=== PATIENT | female | born 1975 | race Caucasian/White ===

== ENCOUNTER → 2019-09-23 16:28 | Outpatient (BNVA) | payer OTHER, SELFPAY | PROVIDERS: Family Provider Family Medicine; PCP Family Medicine; Visit Provider Nurse Practitioner Family | DX: J02.9 Acute pharyngitis, unspecified (principal) | CPT/HCPCS: 87880 ==

== ENCOUNTER → 2019-10-10 15:39 | Outpatient (BNVA) | payer OTHER, SELFPAY | PROVIDERS: Family Provider Family Medicine; PCP Family Medicine; Visit Provider Anesthesiology | DX: M54.41 Lumbago with sciatica, right side (principal); M54.42 Lumbago with sciatica, left side; Z79.891 Long term (current) use of opiate analgesic | CPT/HCPCS: 99214 ==

== ENCOUNTER → 2019-11-13 12:39 | Outpatient (BNVA) | payer OTHER, SELFPAY | PROVIDERS: Family Provider Family Medicine; PCP Family Medicine; Visit Provider Podiatrist Foot & Ankle Surgery | DX: M79.671 Pain in right foot (principal); M77.31 Calcaneal spur, right foot | CPT/HCPCS: 73630 ==

== ENCOUNTER 2020-01-24 12:00 | Outpatient (CLI) | payer OTHER, SELFPAY | END 2020-01-24 12:01 | disposition home or self-care (01) | LOC: SLEEP 01-25 10:44 | PROVIDERS: Family Provider Family Medicine; PCP Family Medicine; Visit Provider Family Medicine | DX: G47.10 Hypersomnia, unspecified (principal) | CPT/HCPCS: G0399 ==

== ENCOUNTER → 2020-01-31 13:44 | Outpatient (BNVA) | payer OTHER, SELFPAY | PROVIDERS: Family Provider Family Medicine; PCP Family Medicine; Visit Provider Nurse Practitioner | DX: M54.41 Lumbago with sciatica, right side (principal); M54.42 Lumbago with sciatica, left side; Z79.891 Long term (current) use of opiate analgesic | CPT/HCPCS: 99213 ==

== ENCOUNTER → 2020-02-08 10:35 | Outpatient (BNVA) | payer OTHER, SELFPAY | PROVIDERS: Family Provider Family Medicine; PCP Family Medicine; Visit Provider Anesthesiology Pain Medicine | DX: M54.41 Lumbago with sciatica, right side (principal); M54.42 Lumbago with sciatica, left side | CPT/HCPCS: 62323; J1040; J2001; J3490 ==

== ENCOUNTER 2020-02-11 13:06 | Outpatient (CLI) | payer OTHER, SELFPAY ==
--- NOTE | 2020-02-11 13:13 | MM_ITS ---
WS: [id number] BILATERAL DIGITAL SCREENING MAMMOGRAPHY WITH CAD CLINICAL INFORMATION: SCREENING HISTORY: Breast soreness COMPARISON: March 02, 2019 TECHNIQUE: Bilateral CC and MLO views. FINDINGS: Scattered fibroglandular densities bilaterally. No suspicious focal mass, asymmetry, calcifications, or architectural distortion. No evidence of malignancy. MM/[id number] IMPRESSION: BI-RADS: 1-Negative FOLLOW UP: 1 Year Follow-up Recommend return to annual screening mammography.
== END 2020-02-11 13:07 | disposition home or self-care (01) ==
LOC: RADSHAW 13:10
PROVIDERS: PCP Family Medicine; Visit Provider Family Medicine
DX: Z12.31 Encounter for screening mammogram for malignant neoplasm of breast (principal)
CPT/HCPCS: 77067

== ENCOUNTER 2020-02-11 13:34 | Outpatient (CLI) | payer OTHER, SELFPAY | END 2020-02-11 13:35 | disposition home or self-care (01) | LOC: SPT 13:36 | PROVIDERS: PCP Family Medicine; Visit Provider Podiatrist Foot & Ankle Surgery | DX: Z46.89 Encounter for fitting and adjustment of other specified devices (principal); M76.72 Peroneal tendinitis, left leg | CPT/HCPCS: 97760; L1902 ==

== ENCOUNTER → 2020-03-26 10:33 | Outpatient (BNVA) | payer OTHER, SELFPAY | PROVIDERS: PCP Family Medicine; Visit Provider Nurse Practitioner | DX: M54.42 Lumbago with sciatica, left side (principal); M54.41 Lumbago with sciatica, right side; M79.7 Fibromyalgia; Z79.891 Long term (current) use of opiate analgesic | CPT/HCPCS: 99214 ==

== ENCOUNTER → 2020-05-21 09:51 | Outpatient (BNVA) | payer SELFPAY | PROVIDERS: PCP Family Medicine; Visit Provider Anesthesiology | DX: M54.41 Lumbago with sciatica, right side (principal); Z79.891 Long term (current) use of opiate analgesic | CPT/HCPCS: 99213; 99214 ==

== ENCOUNTER → 2020-06-20 13:15 | Outpatient (BNVA) | payer OTHER, SELFPAY | PROVIDERS: PCP Family Medicine | DX: Z11.59 Encounter for screening for other viral diseases (principal) | CPT/HCPCS: 87635 ==

== ENCOUNTER → 2020-07-02 10:45 | Outpatient (BNVA) | payer OTHER, SELFPAY | PROVIDERS: PCP Family Medicine; Visit Provider Nurse Practitioner Family | DX: Z20.828 Contact with and (suspected) exposure to other viral communicable diseases (principal) | CPT/HCPCS: 87635 ==

== ENCOUNTER → 2020-07-17 08:56 | Outpatient (BNVA) | payer OTHER, SELFPAY | PROVIDERS: PCP Family Medicine; Visit Provider Anesthesiology | DX: M54.42 Lumbago with sciatica, left side (principal); M54.41 Lumbago with sciatica, right side; Z79.891 Long term (current) use of opiate analgesic | CPT/HCPCS: 99213; 99214 ==

== ENCOUNTER → 2020-09-16 14:08 | Outpatient (BNVA) | payer OTHER, SELFPAY | PROVIDERS: PCP Family Medicine; Visit Provider Anesthesiology | DX: M54.41 Lumbago with sciatica, right side (principal); M54.42 Lumbago with sciatica, left side; Z79.891 Long term (current) use of opiate analgesic | CPT/HCPCS: 99213 ==

== ENCOUNTER → 2020-11-13 14:17 | Outpatient (BNVA) | payer OTHER, SELFPAY | PROVIDERS: PCP Family Medicine; Visit Provider Nurse Practitioner | DX: M54.41 Lumbago with sciatica, right side (principal); M54.42 Lumbago with sciatica, left side; Z79.891 Long term (current) use of opiate analgesic | CPT/HCPCS: 99213 ==

== ENCOUNTER → 2021-01-14 08:48 | Outpatient (BNVA) | payer BC, SELFPAY | PROVIDERS: PCP Family Medicine; Visit Provider Nurse Practitioner | DX: M54.42 Lumbago with sciatica, left side (principal); M54.41 Lumbago with sciatica, right side; M79.7 Fibromyalgia; Z79.891 Long term (current) use of opiate analgesic | CPT/HCPCS: 99213 ==

== ENCOUNTER → 2021-02-09 10:31 | Outpatient (BNVA) | payer BC, SELFPAY | PROVIDERS: PCP Family Medicine; Visit Provider Podiatrist Foot & Ankle Surgery | DX: M25.579 Pain in unspecified ankle and joints of unspecified foot (principal) | CPT/HCPCS: 73610 ==

== ENCOUNTER → 2021-03-17 08:38 | Outpatient (BNVA) | payer BC, SELFPAY | PROVIDERS: PCP Family Medicine; Visit Provider Nurse Practitioner | DX: G89.29 Other chronic pain (principal); M54.41 Lumbago with sciatica, right side; M54.42 Lumbago with sciatica, left side; M54.2 Cervicalgia; Z79.891 Long term (current) use of opiate analgesic | CPT/HCPCS: 99213 ==

== ENCOUNTER → 2021-05-27 09:46 | Outpatient (BNVA) | payer BC, SELFPAY | PROVIDERS: PCP Family Medicine; Visit Provider Anesthesiology | DX: G89.29 Other chronic pain (principal); M54.40 Lumbago with sciatica, unspecified side; M54.2 Cervicalgia; Z79.891 Long term (current) use of opiate analgesic | CPT/HCPCS: 73610; 73630; 99214 ==

== ENCOUNTER → 2021-11-23 11:41 | Outpatient (BNVA) | payer BC, SELFPAY | PROVIDERS: PCP Family Medicine; Visit Provider Podiatrist Foot & Ankle Surgery | DX: S93.302A Unspecified subluxation of left foot, initial encounter (principal); X58.XXXA Exposure to other specified factors, initial encounter | CPT/HCPCS: 80053 ==

== ENCOUNTER 2022-10-25 16:09 | Outpatient (CLI) | payer BC, SELFPAY | END 2022-10-25 16:10 | disposition home or self-care (01) | LOC: SPT 16:09 | PROVIDERS: PCP Family Medicine; Visit Provider Podiatrist Foot & Ankle Surgery | DX: Z46.89 Encounter for fitting and adjustment of other specified devices (principal); M72.2 Plantar fascial fibromatosis; M76.71 Peroneal tendinitis, right leg; M76.821 Posterior tibial tendinitis, right leg; G57.62 Lesion of plantar nerve, left lower limb | CPT/HCPCS: 97760; L3030 ==

== ENCOUNTER → 2023-06-01 17:40 | Outpatient (BNVA) | payer BC, SELFPAY | PROVIDERS: Visit Provider Registered Nurse Neonatal Intensive Care | DX: J02.9 Acute pharyngitis, unspecified (principal) | CPT/HCPCS: 87880 ==

== ENCOUNTER 2023-06-07 09:33 | Outpatient (RCR) | payer BC, SELFPAY | END 2023-06-14 23:59 | disposition home or self-care (01) | LOC: SPT 09:33 | PROVIDERS: PCP Internal Medicine; Visit Provider Anesthesiology Pain Medicine | DX: M79.18 Myalgia, other site (principal); Z79.891 Long term (current) use of opiate analgesic; M25.512 Pain in left shoulder; R20.0 Anesthesia of skin; R93.7 Abnormal findings on diagnostic imaging of other parts of musculoskeletal system; M54.2 Cervicalgia; M54.50 Low back pain, unspecified; M54.12 Radiculopathy, cervical region; M54.18 Radiculopathy, sacral and sacrococcygeal region | CPT/HCPCS: 97161 ==

== ENCOUNTER 2023-06-15 06:00 | Outpatient (RCR) | payer BC, SELFPAY | END 2023-07-14 23:59 | disposition home or self-care (01) | LOC: SPT 06:00 | PROVIDERS: PCP Internal Medicine; Visit Provider Anesthesiology Pain Medicine | DX: G89.4 Chronic pain syndrome (principal) | CPT/HCPCS: 97110 ==

== ENCOUNTER 2023-07-15 06:00 | Outpatient (RCR) | payer BC, SELFPAY | END 2023-08-14 23:59 | disposition home or self-care (01) | LOC: SPT 06:00 | PROVIDERS: PCP Internal Medicine; Visit Provider Anesthesiology Pain Medicine | DX: G89.4 Chronic pain syndrome (principal) | CPT/HCPCS: 97110; 97530 ==

== ENCOUNTER 2023-10-13 16:18 | Outpatient (CLI) | payer BC, SELFPAY ==
--- NOTE | 2023-10-13 16:29 | MR_ITS ---
WS: [id number] MRI LUMBAR SPINE NONCONTRAST TECHNIQUE: Sagittal T1, T2 and STIR imaging. Axial T1 and T2 imaging. CLINICAL INFORMATION: RADICULOPATHY LUMBAR COMPARISON: MRI 2016 FINDINGS: 5 nonrib-bearing lumbar vertebral bodies considered L1-L5 for the purposes of this dictation and in k eeping with the prior numbering convention. Note if counting performed from the craniocervical juncti on 13 thoracic and 5 lumbar-type nonrib-bearing vertebral bodies are noted. Mild lumbar curve. Grade 1 anterolisthesis L4 on L5. L1-L2: Mild annular bulging. Mild facet arthropathy. Spinal canal and foramen are patent. L2-L3: Tiny LEFT foraminal protrusion with mild LEFT foraminal narrowing. Spinal canal and RIGHT fora men are patent. Slight contact of the exiting LEFT L2 nerve root. This is progressed compared to prev ious. L3-L4: Mild annular bulging. Moderate central canal stenosis. Impingement subarticular recess. Modera te facet arthropathy. LEFT foraminal protrusion impinges the exiting LEFT L3 nerve root with mild LEF T foraminal narrowing. RIGHT foramen is patent. This is progressed compared to previous. Central amarjit l stenosis is progressed. L4-L5: Grade 1 anterolisthesis in combination with central disc protrusion results in severe central canal stenosis progressed compared to previous. Impingement of traversing L5 nerve roots. Moderate fa cet arthropathy. Moderate RIGHT foraminal narrowing. LEFT foramen is patent. Slight anterolisthesis L 4 on L5. L5-S1: Mild annular bulging. Moderate facet arthropathy. Spinal canal and foramen are patent. Visualized pelvic bony structures: Normal. Paravertebral soft tissues: Normal. Central disc protrusions in the cervical spine on waiter and cashier imaging at C5-C6 and C6-C7 with mild central canal stenosis. This could be further evaluated with cervical spine MRI. IMPRESSION: 1. 5 nonrib-bearing vertebral bodies considered L1-L5 for the purposes of this dictation. 2. Severe central canal stenosis L4-5 has progressed compared to previous with central disc protrusi on in combination with facet arthropathy and slight anterolisthesis. Tiny annular fissure at this lev el. 3. Moderate central canal stenosis L3-4 has progressed. 4. LEFT foraminal protrusion L2-3 slightly impinges the exiting LEFT L2 nerve root progressed compar ed to previous. 5. Small LEFT foraminal protrusion L3-4 slightly impinges the exiting L3 nerve root progressed marni red to previous. 6. Moderate RIGHT L4-5 foraminal narrowing. 7. Small disc protrusions in the cervical spine on the waiter and cashier imaging at C5-C6 and C6-C7 with slight contact of the cervical cord. Recommend cervical spine MRI for better detail.
== END 2023-10-13 16:19 | disposition home or self-care (01) ==
LOC: RAD 16:18
PROVIDERS: PCP Family Medicine; Visit Provider Nurse Practitioner Family
DX: M48.061 Spinal stenosis, lumbar region without neurogenic claudication (principal); M51.26 Other intervertebral disc displacement, lumbar region; M47.816 Spondylosis without myelopathy or radiculopathy, lumbar region; M50.223 Other cervical disc displacement at C6-C7 level
CPT/HCPCS: 72148

== ENCOUNTER → 2024-02-22 10:20 | Outpatient (CLI) | payer BC, SELFPAY ==
--- NOTE | 2024-02-22 10:21 | MM_ITS ---
WS: [id number] BILATERAL 3D TOMOSYNTHESIS DIGITAL SCREENING MAMMOGRAPHY WITH CAD CLINICAL INFORMATION: SCREENING HISTORY: Screening mammogram. No current complaints. COMPARISON: 2020 TECHNIQUE: Bilateral CC and MLO views. FINDINGS: Scattered fibroglandular densities bilaterally. No suspicious focal mass, asymmetry, calcifications, or architectural distortion. No evidence of malignancy. Vascular calcification MM/[id number] IMPRESSION: BI-RADS: 2-Benign FOLLOW UP: 1 Year Follow-up Recommend return to annual screening mammography.
== END | disposition home or self-care (01) ==
LOC: RAD 10:19
PROVIDERS: PCP Family Medicine; Visit Provider Family Medicine
DX: Z12.31 Encounter for screening mammogram for malignant neoplasm of breast (principal); R92.323 Mammographic fibroglandular density, bilateral breasts; R92.1 Mammographic calcification found on diagnostic imaging of breast
CPT/HCPCS: 77063; 77067

== ENCOUNTER 2024-04-19 11:42 | Outpatient (CLI) | payer BC, SELFPAY ==
--- NOTE | 2024-04-19 | ECG_ITS ---
[facility] Test Date: 2024-04-19 Pat Name: Esperanza Acevedo Department: Room: Gender: Female Speech Language Therapist: Braulio Flower : 1975 Requested By: Sharmila Lees Order Number: [id number] Go MD: Saulo Michaud M.D. Interpretive Statements NAME OF STUDY: TREADMILL STRESS TEST INDICATION: [CP, ] EXERCISE DATA: The patient was exercised by Deo protocol. Baseline heart rate was 80 beats per minute. Baseline blood pressure was 120/74 millimeters of mercury. Maximal predicted heart rate was 174 beats per minute. Maximum heart rate achieved was 157, which was 90% of the maximum predicted heart rate. Maximum blood pressure was 186/100 millimeters of mercury. Total exercise time was 6 mintes and 53 seconds. Maximum METs achieved was 9.4. The reason for ending the test was maximal effort was achieved. The patient complained of shortness of breath during the stress test, which then resolved at the end of the test. ELECTROCARDIOGRAM: BASELINE: Showed sinus rhythm, normal axis, no significant ST-T changes at the baseline noted. [] EXERCISE: At the peak exercise level, [] No significant ST-T changes suggestive of ischemia noted. [] RECOVERY: During the recovery period, heart rate dropped appropriately. No significant ST-T changes in the recovery suggestive of ischemia noted. [] CONCLUSION: 1. Exercise capacity is fair. 2. Heart rate response was appropriate 3. Blood pressure response was appropriate 4. Symptoms not suggestive of ischemia. 5. Stress test does not show evidence of ischemia. Electronically Signed On 04-23-2024 11:41:02 CDT by Saulo Michaud M.D. [email or web address]
[2024-04-19 11:46] VITALS: BMI 39.5
[2024-04-19 12:18] VITALS: BP 134/90; PULSE 57
== END 2024-04-19 11:43 | disposition home or self-care (01) ==
PROVIDERS: PCP Family Medicine; Visit Provider Family Medicine
DX: R07.9 Chest pain, unspecified (principal); R94.39 Abnormal result of other cardiovascular function study
CPT/HCPCS: 93017

== ENCOUNTER 2024-08-14 12:20 | Outpatient (CLI) | payer BC, SELFPAY ==
--- NOTE | 2024-08-14 12:23 | USR_ITS ---
PROCEDURE INFORMATION: Exam: US Left Limited Joint or Other Non-Vascular Extremity Structure Exam date and time: 08/14/2024 12:37 PM Age: 49 years old Clinical indication: Mass or lump; Other: Axilla; Additional info: Swelling, mass, lump, unspecified upper limb TECHNIQUE: Imaging protocol: US left limited joint or other nonvascular extremity structure. Real-time ultrasound with image documentation. Exam focused on the area of clinical interest. COMPARISON: No relevant prior studies available. FINDINGS: Soft tissues: There are lymph nodes in the axilla with echogenic fatty hilum. This measures 2.1 x 1.8 x 0.5 cm and another measures 1.4 x 0.9 x 0.6 cm. Not pathologic by size criteria. US/US soft tissue/extremity [id number] IMPRESSION: No adenopathy.
== END 2024-08-14 12:21 | disposition home or self-care (01) ==
PROVIDERS: PCP Family Medicine; Visit Provider Family Medicine
DX: R22.32 Localized swelling, mass and lump, left upper limb (principal)
CPT/HCPCS: 76882

== ENCOUNTER 2024-08-24 11:58 | Emergency (ER) | payer BC, SELFPAY ==
[2024-08-24 12:01] VITALS: BP 128/76; PULSE 77; RESP 16; TEMP 36.5; O2SAT 96; BMI 41.5
--- NOTE | 2024-08-24 12:11 | XR_ITS ---
WS: [id number] LEFT ANKLE: 3 VIEW(S) TECHNIQUE: AP, oblique(s) and lateral. HISTORY: fall/inversion injury COMPARISON: None available. Normal anatomic alignment with no fracture or dislocation. No joint effusion or widening of the ankle mortise. No significant degenerative changes at the joint spaces. No soft tissue abnormality. Small calcaneal spur. XR/XR ankle LT min 3V* [id number] IMPRESSION: Normal LEFT ankle.
--- NOTE | 2024-08-24 12:11 | XR_ITS ---
WS: [id number] LEFT KNEE: 3 VIEW(S) TECHNIQUE: AP, oblique(s) and lateral. HISTORY: fall/prox fibula pain COMPARISON: None available. No fracture or dislocation. No joint space narrowing or osteophytes. No joint effusion. No soft tissue abnormality. XR/XR knee LT 3V* [id number] IMPRESSION: Normal LEFT knee.
--- NOTE | 2024-08-24 12:11 | W.ED.EXTPRO ---
Documented by User: MUKUL Bullard 08/24/24 12:39 HPI - Extremity Problem General: Chief complaint: Extremity Injury, Lower Stated complaint: left ankle pain Time Seen by Provider: 08/24/24 12:08 Source: patient Mode of arrival: ambulatory Limitations: no limitations History of Present Illness: Patient is a 49-year-old female presenting to the emergency department after fall and left ankle injury occurred prior to arrival. Patient states foot went to sleep, she stood up too quickly and her ankle gave out on her. She reports inversion injury. Swelling reported to left lateral malleolus. States that she has never fractured or injured her foot in the past, she has been ambulatory though states this has been very painful. States that she feels a grinding in her foot when she is walking. States pain shoots distally down her foot, she also has some pain to the knee and has fractured her proximal fibula before. She has not taken anything for pain. No distal sensory changes. MD Complaint: joint pain (Left ankle and left knee) Onset (ago): minute(s) Pain Consistency: constant Location: left and lower extremity Radiation: distal Exacerbating factors: weight bearing Associated symptoms: Deny chest pain, fever(s) or rash Related Data Home Medications Medication Instructions Recorded Confirmed cetirizine 10 mg capsule (Zyrtec) 10 mg PO DAILY 09/23/19 08/24/24 estradiol 1 mg tablet 1 mg PO DAILY 09/23/19 08/24/24 fluticasone propionate 50 2 spray intranasal DAILY 09/23/19 08/24/24 mcg/actuation nasal spray,suspension (Flonase Allergy Relief) levothyroxine 125 mcg capsule 125 mcg PO DAILY 09/23/19 08/24/24 liothyronine 5 mcg tablet 5 mcg PO DAILY 09/23/19 08/24/24 omeprazole 40 mg capsule,delayed 40 mg PO DAILY 09/23/19 08/24/24 release trazodone 50 mg tablet 50 mg PO DAILY 09/23/19 08/24/24 hydrocodone 10 mg-acetaminophen 1 tab PO QID pain 04/26/22 08/24/24 325 mg tablet sumatriptan succinate 50 mg tablet 50 mg PO DAILY 06/01/23 08/24/24 albuterol sulfate 90 mcg/actuation 2 puff inhalation Q4H 08/24/24 08/24/24 aerosol inhaler aripiprazole 2 mg tablet 2 mg PO DAILY 08/24/24 08/24/24 baclofen 20 mg tablet 20 mg PO TID 08/24/24 08/24/24 fluoxetine 20 mg capsule 60 mg PO DAILY 08/24/24 08/24/24 montelukast 10 mg tablet 10 mg PO DAILY 08/24/24 08/24/24 ropinirole 0.5 mg tablet 1 mg PO QPM 08/24/24 08/24/24 Previous Rx's Medication Instructions Recorded Custom Molded Orthotics #1 ea 02/09/21 tizanidine 4 mg tablet 4 mg PO Q12H PRN muscle spasticity 05/27/21 30 days #60 tabs pregabalin 150 mg capsule 150 mg PO TID 30 days #90 caps 06/18/21 Supernator to the right #1 ea 09/07/21 Custom Molded Orthotics #1 ea 04/26/22 sole supports #1 ea 07/19/22 celecoxib 100 mg capsule 100 mg PO Q12H #60 caps 09/20/22 articulating AFO #1 ea 03/15/23 Allergies Allergy/AdvReac Type Severity Reaction Status Date / Time Sulfa (Sulfonamide Allergy Unknown RASH Verified 07/13/24 16:00 Antibiotics) Review of Systems General: Reports: 10 or more systems reviewed and unremarkable except in HPI and below Const: Denies: fever(s) or chills Card: Denies: chest pain Resp: Denies: dyspnea or productive cough GI: Denies: abdominal pain, nausea, vomiting or diarrhea : Denies: flank pain Musc: Reports: joint pain (Left ankle/left knee) and joint swelling (Left ankle); Denies: neck pain, back pain, extremity pain, extremity swelling, joint redness, joint warmth, limited range of motion or muscle weakness Skin/Breast: Denies: rash Neuro: Denies: headache(s), numbness in extremities or weakness in extremities PFSH ED PFSH: Medical History (Updated 08/24/24 @ 12:35 by MUKUL Bullard) Back pain of lumbar region with sciatica Opioid contract exists Encounter for long-term use of opiate analgesic Surgical History H/O oral surgery H/O wrist surgery History of hysterectomy Family History Other CAD (coronary artery disease) Cancer Diabetes Hypertension Social History Smoking and tobacco/nicotine status: unknown if used tobacco/nicotine Second hand smoke exposure: No Alcohol intake: current Alcohol intake frequency: holidays/special occasions only Substance/Drug Use: never Physical Exam Const: COMMON NORMALS: no acute distress, patient oriented x3, no limitations, alert and well nourished NUTRITIONAL APPEARANCE: obese OTHER: Antalgic gait noted when patient walking into emergency room HENMT: COMMON NORMALS: normocephalic and atraumatic HEAD & SCALP: normocephalic and atraumatic Neck/C-Spine: COMMON NORMALS: full ROM, supple and no meningeal signs Resp: COMMON NORMALS: normal respiratory effort, No use of accessory muscles and clear to auscultation bilaterally AUSCULTATION: clear to auscultation bilaterally Cardio: COMMON NORMALS: regular rate and regular rhythm RATE: regular rate RHYTHM: regular rhythm Extremity: COMMON NORMALS: full ROM, capillary refill normal, no joint enlargement and no clubbing, cyanosis or edema NARRATIVE EXTREMITY EXAM: Some swelling to the left lateral malleolus, tender to palpation diffusely to the left lateral ankle, no bruising. Positive inversion ankle testing. She does have full active range of motion. No distal sensory changes, DP/PT pulses present. Some mild reproducible tenderness to palpation to the proximal fibula on the left. Neuro: COMMON NORMALS: patient oriented x3, moves all extremities, no focal motor deficits and no sensory deficits noted SENSORIUM/ORIENTATION: Yes alert MENINGEAL SIGNS: Yes no meningeal signs Skin: COMMON NORMALS: no rashes or lesions noted GENERAL SKIN EXAM: no rashes or lesions noted Course Vital Signs: Vital signs: Vital Signs Temperature 97.7 F 08/24/24 12:01 Pulse Rate 63 08/24/24 12:48 Respiratory Rate 16 08/24/24 12:01 Blood Pressure 125/82 08/24/24 12:48 Pulse Oximetry 96 08/24/24 12:48 Oxygen Delivery Me thod Room Air 08/24/24 12:01 MDM - Extremity (Nontraumatic) Medical Decision Making This patient had inversion injury to her ankle prior to arrival. Other than some swelling and tenderness on exam, overall was unimpressed and do not suspect any acute fracture. X-ray of ankle was normal, with her reporting pain to the left proximal knee as well ordered an x-ray this also was negative. No distal neurovascular symptoms, this does appear to be simple ankle sprain. Will have her treat with RICE therapy and rest up over the next couple of days with conservative treatment, and following up with primary care routinely. Patient comfortable with this plan at this time. Reginaldo bandage prior to discharge. Lab Data Radiology Impressions Ankle X-Ray 08/24/24 12:11 IMPRESSION: Normal LEFT ankle. Knee X-Ray 08/24/24 12:11 IMPRESSION: Normal LEFT knee. All radiology interpretation(s) finalized by discharge Discharge Plan Discharge Patient Disposition: Home Clinical Impression: Left ankle sprain Qualifiers: Encounter type: initial encounter Involved ligament of ankle: unspecified ligament Qualified Code(s): S93.402A - Sprain of unspecified ligament of left ankle, initial encounter Condition: Stable Prescriptions: No Action levothyroxine 125 mcg capsule 125 mcg PO DAILY liothyronine 5 mcg tablet 5 mcg PO DAILY trazodone 50 mg tablet 50 mg PO DAILY Zyrtec 10 mg capsule 10 mg PO DAILY fluticasone propionate [Flonase Allergy Relief] 50 mcg/actuation spray,suspension 2 spray INTRANASAL DAILY omeprazole 40 mg capsule,delayed release(DR/EC) 40 mg PO DAILY estradiol 1 mg tablet 1 mg PO DAILY (DME) Supernator to the right See Rx Instructions .Route .MEDSUPPLY Qty: 1 0RF Rx Instructions: As directed (DME) Custom Molded Orthotics See Rx Instructions .Route .MEDSUPPLY Qty: 1 0RF Rx Instructions: As directed tizanidine 4 mg tablet 4 mg PO Q12H PRN (Reason: muscle spasticity) 30 Days Qty: 60 1RF pregabalin 150 mg capsule 150 mg PO TID 30 Days Qty: 90 1RF hydrocodone-acetaminophen 10-325 mg tablet 1 tab PO QID Rx Instructions: fill on or after 07/01/21 (DME) Custom Molded Orthotics See Rx Instructions .Route .MEDSUPPLY Qty: 1 0RF Rx Instructions: As directed (DME) sole supports See Rx Instructions .Route .MEDSUPPLY Qty: 1 0RF Rx Instructions: As directed celecoxib 100 mg capsule 100 mg PO Q12H Qty: 60 3RF (DME) articulating AFO See Rx Instructions .Route .MEDSUPPLY Qty: 1 0RF Rx Instructions: As directed custom made by [facility] sumatriptan succinate 50 mg tablet 50 mg PO DAILY baclofen 20 mg tablet 20 mg PO TID montelukast 10 mg tablet 10 mg PO DAILY albuterol sulfate 90 mcg/actuation HFA aerosol inhaler 2 puff INHALATION Q4H fluoxetine 20 mg capsule 60 mg PO DAILY aripiprazole 2 mg tablet 2 mg PO DAILY ropinirole 0.5 mg tablet 1 mg PO QPM Discharge Orders: Discharge ED (Routine); Ordered 08/24/24 Ordered By: Peewee Gregg Referrals: Sharmila Tillman MD [Primary Care Provider] - Patient Instructions: Ankle Sprain (ED) Activity Restrictions/Additional Instructions: Please see attached patient instructions for further education. Rest, ice, compression, and elevation. Tylenol and/or ibuprofen for pain. Gentle range of motion exercises as tolerated, weightbearing as tolerated. Follow-up with primary care. Coding Level of Care Code ED Housekeeping Coordinator for Chg Fwd Documented by User: Rober Cabello DO 08/24/24 14:43 HPI - Extremity Problem General: Chief complaint: Extremity Injury, Lower Stated complaint: left ankle pain Time Seen by Provider: 08/24/24 12:08 Related Data Home Medications Medication Instructions Recorded Confirmed cetirizine 10 mg capsule (Zyrtec) 10 mg PO DAILY 09/23/19 08/24/24 estradiol 1 mg tablet 1 mg PO DAILY 09/23/19 08/24/24 fluticasone propionate 50 2 spray intranasal DAILY 09/23/19 08/24/24 mcg/actuation nasal spray,suspension (Flonase Allergy Relief) levothyroxine 125 mcg capsule 125 mcg PO DAILY 09/23/19 08/24/24 liothyronine 5 mcg tablet 5 mcg PO DAILY 09/23/19 08/24/24 omeprazole 40 mg capsule,delayed 40 mg PO DAILY 09/23/19 08/24/24 release trazodone 50 mg tablet 50 mg PO DAILY 09/23/19 08/24/24 hydrocodone 10 mg-acetaminophen 1 tab PO QID pain 04/26/22 08/24/24 325 mg tablet sumatriptan succinate 50 mg tablet 50 mg PO DAILY 06/01/23 08/24/24 albuterol sulfate 90 mcg/actuation 2 puff inhalation Q4H 08/24/24 08/24/24 aerosol inhaler aripiprazole 2 mg tablet 2 mg PO DAILY 08/24/24 08/24/24 baclofen 20 mg tablet 20 mg PO TID 08/24/24 08/24/24 fluoxetine 20 mg capsule 60 mg PO DAILY 08/24/24 08/24/24 montelukast 10 mg tablet 10 mg PO DAILY 08/24/24 08/24/24 ropinirole 0.5 mg tablet 1 mg PO QPM 08/24/24 08/24/24 Previous Rx's Medication Instructions Recorded Custom Molded Orthotics #1 ea 02/09/21 tizanidine 4 mg tablet 4 mg PO Q12H PRN muscle spasticity 05/27/21 30 days #60 tabs pregabalin 150 mg capsule 150 mg PO TID 30 days #90 caps 06/18/21 Supernator to the right #1 ea 09/07/21 Custom Molded Orthotics #1 ea 04/26/22 sole supports #1 ea 07/19/22 celecoxib 100 mg capsule 100 mg PO Q12H #60 caps 09/20/22 articulating AFO #1 ea 03/15/23 Allergies Allergy/AdvReac Type Severity Reaction Status Date / Time Sulfa (Sulfonamide Allergy Unknown RASH Verified 07/13/24 16:00 Antibiotics) [facility] ED PFSH: Medical History (Updated 08/24/24 @ 12:35 by MUKUL Bullard) Back pain of lumbar region with sciatica Opioid contract exists Encounter for long-term use of opiate analgesic Surgical History H/O oral surgery H/O wrist surgery History of hysterectomy Family History Other CAD (coronary artery disease) Cancer Diabetes Hypertension Social History Smoking and tobacco/nicotine status: unknown if used tobacco/nicotine Second hand smoke exposure: No Alcohol intake: current Alcohol intake frequency: holidays/special occasions only Substance/Drug Use: never Course Vital Signs: Vital signs: Vital Signs Temperature 97.7 F 08/24/24 12:01 Pulse Rate 63 08/24/24 12:48 Respiratory Rate 16 08/24/24 12:01 Blood Pressure 125/82 08/24/24 12:48 Pulse Oximetry 96 08/24/24 12:48 Oxygen Delivery Me thod Room Air 08/24/24 12:01 MDM - Extremity (Nontraumatic) Medical Decision Making This patient had inversion injury to her ankle prior to arrival. Other than some swelling and tenderness on exam, overall was unimpressed and do not suspect any acute fracture. X-ray of ankle was normal, with her reporting pain to the left proximal knee as well ordered an x-ray this also was negative. No distal neurovascular symptoms, this does appear to be simple ankle sprain. Will have her treat with RICE therapy and rest up over the next couple of days with conservative treatment, and following up with primary care routinely. Patient comfortable with this plan at this time. Reginaldo bandage prior to discharge. Chart reviewed and patient discussed with midlevel. Agree with assessment and plan. Lab Data Radiology Impressions Ankle X-Ray 08/24/24 12:11 IMPRESSION: Normal LEFT ankle. Knee X-Ray 08/24/24 12:11 IMPRESSION: Normal LEFT knee. Discharge Plan Discharge Patient Disposition: Home Clinical Impression: Left ankle sprain Qualifiers: Encounter type: initial encounter Involved ligament of ankle: unspecified ligament Qualified Code(s): S93.402A - Sprain of unspecified ligament of left ankle, initial encounter Condition: Stable Prescriptions: No Action levothyroxine 125 mcg capsule 125 mcg PO DAILY liothyronine 5 mcg tablet 5 mcg PO DAILY trazodone 50 mg tablet 50 mg PO DAILY Zyrtec 10 mg capsule 10 mg PO DAILY fluticasone propionate [Flonase Allergy Relief] 50 mcg/actuation spray,suspension 2 spray INTRANASAL DAILY omeprazole 40 mg capsule,delayed release(DR/EC) 40 mg PO DAILY estradiol 1 mg tablet 1 mg PO DAILY (DME) Supernator to the right See Rx Instructions .Route .MEDSUPPLY Qty: 1 0RF Rx Instructions: As directed (DME) Custom Molded Orthotics See Rx Instructions .Route .MEDSUPPLY Qty: 1 0RF Rx Instructions: As directed tizanidine 4 mg tablet 4 mg PO Q12H PRN (Reason: muscle spasticity) 30 Days Qty: 60 1RF pregabalin 150 mg capsule 150 mg PO TID 30 Days Qty: 90 1RF hydrocodone-acetaminophen 10-325 mg tablet 1 tab PO QID Rx Instructions: fill on or after 07/01/21 (DME) Custom Molded Orthotics See Rx Instructions .Route .MEDSUPPLY Qty: 1 0RF Rx Instructions: As directed (DME) sole supports See Rx Instructions .Route .MEDSUPPLY Qty: 1 0RF Rx Instructions: As directed celecoxib 100 mg capsule 100 mg PO Q12H Qty: 60 3RF (DME) articulating AFO See Rx Instructions .Route .MEDSUPPLY Qty: 1 0RF Rx Instructions: As directed custom made by the [facility] sumatriptan succinate 50 mg tablet 50 mg PO DAILY baclofen 20 mg tablet 20 mg PO TID montelukast 10 mg tablet 10 mg PO DAILY albuterol sulfate 90 mcg/actuation HFA aerosol inhaler 2 puff INHALATION Q4H fluoxetine 20 mg capsule 60 mg PO DAILY aripiprazole 2 mg tablet 2 mg PO DAILY ropinirole 0.5 mg tablet 1 mg PO QPM Discharge Orders: Discharge ED (Routine); Ordered 08/24/24 Ordered By: Peewee Gregg Referrals: Sharmila Tillman MD [Primary Care Provider] - Patient Instructions: Ankle Sprain (ED) Activity Restrictions/Additional Instructions: Please see attached patient instructions for further education. Rest, ice, compression, and elevation. Tylenol and/or ibuprofen for pain. Gentle range of motion exercises as tolerated, weightbearing as tolerated. Follow-up with primary care. Coding Level of Care Code ED Housekeeping Coordinator for Aureliano Greenberg
[2024-08-24 12:48] VITALS: BP 125/82; PULSE 63; O2SAT 96
== END 2024-08-24 12:49 | disposition home or self-care (01) ==
PROVIDERS: Emergency Provider Physician Assistant; PCP Family Medicine
DX: S93.402A Sprain of unspecified ligament of left ankle, initial encounter (principal); W19.XXXA Unspecified fall, initial encounter
CPT/HCPCS: 73562; 73610; 99283

== ENCOUNTER 2024-10-12 10:34 | Outpatient (CLI) | payer BC, SELFPAY | END 2024-10-12 10:35 | disposition home or self-care (01) | LOC: LAB 10:37 | PROVIDERS: PCP Family Medicine; Visit Provider Surgery | DX: K58.9 Irritable bowel syndrome, unspecified (principal) | CPT/HCPCS: 83630; 83993 ==

== ENCOUNTER 2024-11-22 06:29 | Day surgery (SDC) | payer OTHER, SELFPAY ==
--- NOTE | 2024-11-22 06:19 | P.HP_ITS ---
Same Day Surgery H&P Indication for Procedure/HPI DATE OF PROCEDURE: November 22, 2024 CHIEF COMPLAINT/INDICATIONFOR SURGICAL PROCEDURE: need for screening colonoscopy PREOP DIAGNOSIS: need for screening colonoscopy PLANNED PROCEDURE: Operation Date: 11/22/24 07:40 Proposed Procedures p EGD [id number] G0105 Z12.11 K21.9(Not Applicable) - Peewee Bynum MD s Colonoscopy(Not Applicable) - Peewee Bynum MD Medications/Allergies* Home Medications ?Medication ?Instructions ?Recorded ?Confirmed ?Type cetirizine 10 mg capsule (Zyrtec) 10 mg PO DAILY 09/2311/20/24 History estradiol 1 mg tablet 1 mg PO DAILY 09/23/1911/20 History fluticasone propionate 50 2 spray intranasal DAILY 05/0411/20/24 History mcg/actuation nasal spray,suspension (Flonase Allergy Relief) levothyroxine 125 mcg capsule 125 mcg PO DAILY 0 11/20/24 History liothyronine 5 mcg tablet 5 mcg PO DAILY 09/23/1904/08 History omeprazole 40 mg capsule,delayed 40 mg PO DAILY 11/20/24 History release trazodone 50 mg tablet 50 mg PO DAILY 09/23/1904/08 History hydrocodone 10 mg-acetaminophen 1 tab PO QID pain 04/1511/20/24 History 325 mg tablet sumatriptan succinate 50 mg tablet 50 mg PO DAILY 05/1511/20/24 History albuterol sulfate 90 mcg/actuation 2 puff inhalation Q 4H 08/24/24 11/20/24 History aerosol inhaler aripiprazole 2 mg tablet 2 mg PO DAILY 08/24/2411/20 History baclofen 20 mg tablet 20 mg PO TID 08/24/24 History fluoxetine 20 mg capsule 60 mg PO DAILY 08/24/2404/08 History montelukast 10 mg tablet 10 mg PO DAILY 08/24/2404/08 History ropinirole 0.5 mg tablet 1 mg PO QPM 08/24/24 5 History Allergies/Adverse Reactions Allergy/AdvReac Type Severity Reaction Status Date / Time Sulfa (Sulfonamide Allergy Unknown RASH Verified 10/10/24 09:59 Antibiotics) Pertinent History/Comorbid Conditions* Medical History (Updated 09/01/24 @ 00:01 by MARIA D Dumont) Back pain of lumbar region with sciatica Opioid contract exists Encounter for long-term use of opiate analgesic Surgical History (Updated 10/10/19 @ 15:57 by Jt Lu MD) H/O oral surgery H/O wrist surgery History of hysterectomy Family History (Updated 10/10/19 @ 15:46 by Katelyn Paul LPN) Diabetes CAD (coronary artery disease) Cancer Hypertension Social History Smoking and tobacco/nicotine status: never used tobacco/nicotine Second hand smoke exposure: No Alcohol intake: current Alcohol intake frequency: holidays/special occasions only Substance/Drug Use: never Pertinent Exam Findings alert, oriented x 3, clear to auscultation bilaterally, regular rate & rhythm and procedure specific exam findings Recommendations Surgery/Procedure today Coding Level of Care Code Acute Code for Aureliano Greenberg
--- NOTE | 2024-11-22 06:19 | W.PM.OPSFHP ---
Same Day Surgery H&P Indication for Procedure/HPI DATE OF PROCEDURE: November 22, 2024 CHIEF COMPLAINT/INDICATIONFOR SURGICAL PROCEDURE: need for screening colonoscopy PREOP DIAGNOSIS: need for screening colonoscopy PLANNED PROCEDURE: Operation Date: 11/22/24 07:40 Proposed Procedures p EGD [id number] G0105 Z12.11 K21.9(Not Applicable) - Peewee Bynum MD s Colonoscopy(Not Applicable) - Peewee Bynum MD Medications/Allergies* Home Medications ?Medication ?Instructions ?Recorded ?Confirmed ?Type cetirizine 10 mg capsule (Zyrtec) 10 mg PO DAILY 09/23/19 11/20/24 History estradiol 1 mg tablet 1 mg PO DAILY 09/23/19 11/20/24 History fluticasone propionate 50 2 spray intranasal DAILY 09/23/19 11/20/24 History mcg/actuation nasal spray,suspension (Flonase Allergy Relief) levothyroxine 125 mcg capsule 125 mcg PO DAILY 09/23/19 11/20/24 History liothyronine 5 mcg tablet 5 mcg PO DAILY 09/23/19 11/20/24 History omeprazole 40 mg capsule,delayed 40 mg PO DAILY 09/23/19 11/20/24 History release trazodone 50 mg tablet 50 mg PO DAILY 09/23/19 11/20/24 History hydrocodone 10 mg-acetaminophen 1 tab PO QID pain 04/26/22 11/20/24 History 325 mg tablet sumatriptan succinate 50 mg tablet 50 mg PO DAILY 06/01/23 11/20/24 History albuterol sulfate 90 mcg/actuation 2 puff inhalation Q4H 08/24/24 11/20/24 History aerosol inhaler aripiprazole 2 mg tablet 2 mg PO DAILY 08/24/24 11/20/24 History baclofen 20 mg tablet 20 mg PO TID 08/24/24 11/20/24 History fluoxetine 20 mg capsule 60 mg PO DAILY 08/24/24 11/20/24 History montelukast 10 mg tablet 10 mg PO DAILY 08/24/24 11/20/24 History ropinirole 0.5 mg tablet 1 mg PO QPM 08/24/24 11/20/24 History Allergies/Adverse Reactions Allergy/AdvReac Type Severity Reaction Status Date / Time Sulfa (Sulfonamide Allergy Unknown RASH Verified 10/10/24 09:59 Antibiotics) Pertinent History/Comorbid Conditions* Medical History (Updated 09/01/24 @ 00:01 by MARIA D Dumont) Back pain of lumbar region with sciatica Opioid contract exists Encounter for long-term use of opiate analgesic Surgical History (Updated 10/10/19 @ 15:57 by Jt Lu MD) H/O oral surgery H/O wrist surgery History of hysterectomy Family History (Updated 10/10/19 @ 15:46 by Katelyn Paul LPN) Diabetes CAD (coronary artery disease) Cancer Hypertension Social History Smoking and tobacco/nicotine status: never used tobacco/nicotine Second hand smoke exposure: No Alcohol intake: current Alcohol intake frequency: holidays/special occasions only Substance/Drug Use: never Pertinent Exam Findings alert, oriented x 3, clear to auscultation bilaterally, regular rate & rhythm and procedure specific exam findings Recommendations Surgery/Procedure today Coding Level of Care Code Acute Code for Aureliano Greenberg
[2024-11-22 06:45] VITALS: BP 135/86; PULSE 99; RESP 18; TEMP 36.4; O2SAT 98; BMI 41.0
--- NOTE | 2024-11-22 06:52 | P.ANESASSM_ITS ---
Pre-Anesthetic Assessment Height/Weight: Height 1.7 m Preop Diagnosis: GERD, need for screening colonoscopy Operation Date: 11/22/24 07:40 Proposed Procedures p EGD [id number] G0105 Z12.11 K21.9(Not Applicable) - Peewee Bynum MD s Colonoscopy(Not Applicable) - Peewee Bynum MD Familial anesthetic complications: none Was Beta Susannah taken within 24 hours: N/A Was Clonidine taken within 24 hours: N/A Social No alcohol and No tobacco Exam alert, oriented x 3, clear to auscultation bilaterally and regular rate & rhythm Airway Cervical ROM: within normal limits Mallampati: Class II Dentition: full Pulmonary Sleep Apnea (prescribed CPAP, does not wear) CV/HEM None reported None reported Hepatic None reported GI Gastroesophageal Reflux Disease Metabolic Morbid Obesity and Thyroid Disease (hypo) Musc/skel Fibromyalgia Neuropsych None reported Anesthetic Plan ASA status: 2 Anesthesia: MAC Risk of > 500 ml blood loss (7ml/kg in children): No Medications/Allergies Home Medications ?Medication ?Instructions ?Recorded ?Confirmed ?Last Taken ?Type cetirizine 10 mg capsule (Zyrtec) 10 mg PO DAILY 09/2311/20/24 11/21/24 History estradiol 1 mg tablet 1 mg PO DAILY 09/23/1911/2011/21/24 History fluticasone propionate 50 2 spray intranasal DAILY 05/0411/20/24 11/21/24 History mcg/actuation nasal spray,suspension (Flonase Allergy Relief) levothyroxine 125 mcg capsule 125 mcg PO DAILY 0 11/20/24 11/21/24 History liothyronine 5 mcg tablet 5 mcg PO DAILY 09/23/1904/0811/21/24 History omeprazole 40 mg capsule,delayed 40 mg PO DAILY 11/20/24 11/21/24 History release trazodone 50 mg tablet 50 mg PO DAILY 09/23/1904/0811/21/24 History Custom Molded Orthotics #1 ea 02/09/21 10/10/24 Unkn own Rx tizanidine 4 mg tablet 4 mg PO Q12H PRN muscle spas ticity 05/27/21 11/20/24 11/21/24 Rx 30 days #60 tabs pregabalin 150 mg capsule 150 mg PO TID 30 days #90 ca ps 06/18/21 11/20/24 11/21/24 Rx Supernator to the right #1 ea 09/07/21 10/10/24 Unkn own Rx Custom Molded Orthotics #1 ea 04/26/22 10/10/24 Unkn own Rx hydrocodone 10 mg-acetaminophen 1 tab PO QID pain 04/1511/20/24 11/21/24 History 325 mg tablet sole supports #1 ea 07/19/22 10/10/24 Unkn own Rx articulating AFO #1 ea 03/15/23 10/10/24 Unkn own Rx sumatriptan succinate 50 mg tablet 50 mg PO DAILY 05/1511/20/24 11/21/24 History albuterol sulfate 90 mcg/actuation 2 puff inhalation Q 4H 08/24/24 11/20/24 1 Week Ago History aerosol inhaler ~11/13/24 aripiprazole 2 mg tablet 2 mg PO DAILY 08/24/2411/2011/21/24 History baclofen 20 mg tablet 20 mg PO TID 08/24/2411/21/24 History fluoxetine 20 mg capsule 60 mg PO DAILY 08/24/2404/0811/21/24 History montelukast 10 mg tablet 10 mg PO DAILY 08/24/2404/0811/21/24 History ropinirole 0.5 mg tablet 1 mg PO QPM 08/24/24 5 11/21/24 History ondansetron 8 mg disintegrating 8 mg PO Q8H PRN nausea and 10/10/24 11/20/24 11/21/24 Rx tablet vomiting #3 tabs polyethylene glycol 3350 17 17 g PO DAILY 5 days #238 grams 10/10/24 11/20/24 11/21/24 Rx gram/dose oral powder (Miralax) Allergies Allergy/AdvReac Type Severity Reaction Status Date / Time Sulfa (Sulfonamide Allergy Unknown RASH Verified 10/10/24 09:59 Antibiotics) [facility] Anesthesia Medical History Back pain of lumbar region with sciatica Opioid contract exists Encounter for long-term use of opiate analgesic Surgical History (Updated 10/10/24 @ 10:00 by GETACHEW Youssef) H/O oral surgery H/O wrist surgery History of hysterectomy Family History Other CAD (coronary artery disease) Cancer Diabetes Hypertension Social History (Updated 10/10/24 @ 10:00 by GETACHEW Youssef) Smoking and tobacco/nicotine status: never used tobacco/nicotine Second hand smoke exposure: No Alcohol intake: current Alcohol intake frequency: holidays/special occasions only Substance/Drug Use: never Data Anesthesia Cardiac Studies: No Data to Display
--- NOTE | 2024-11-22 06:52 | ANES.PREANE2 ---
Pre-Anesthetic Assessment Height/Weight: Height 1.7 m Preop Diagnosis: GERD, need for screening colonoscopy Operation Date: 11/22/24 07:40 Proposed Procedures p EGD [id number] G0105 Z12.11 K21.9(Not Applicable) - Peewee Bnyum MD s Colonoscopy(Not Applicable) - Peewee Bynum MD Familial anesthetic complications: none Was Beta Susannah taken within 24 hours: N/A Was Clonidine taken within 24 hours: N/A Social No alcohol and No tobacco Exam alert, oriented x 3, clear to auscultation bilaterally and regular rate & rhythm Airway Cervical ROM: within normal limits Mallampati: Class II Dentition: full Pulmonary Sleep Apnea (prescribed CPAP, does not wear) CV/HEM None reported None reported Hepatic None reported GI Gastroesophageal Reflux Disease Metabolic Morbid Obesity and Thyroid Disease (hypo) Musc/skel Fibromyalgia Neuropsych None reported Anesthetic Plan ASA status: 2 Anesthesia: MAC Risk of > 500 ml blood loss (7ml/kg in children): No Medications/Allergies Home Medications ?Medication ?Instructions ?Recorded ?Confirmed ?Last Taken ?Type cetirizine 10 mg capsule (Zyrtec) 10 mg PO DAILY 09/23/19 11/20/24 11/21/24 History estradiol 1 mg tablet 1 mg PO DAILY 09/23/19 11/20/24 11/21/24 History fluticasone propionate 50 2 spray intranasal DAILY 09/23/19 11/20/24 11/21/24 History mcg/actuation nasal spray,suspension (Flonase Allergy Relief) levothyroxine 125 mcg capsule 125 mcg PO DAILY 09/23/19 11/20/24 11/21/24 History liothyronine 5 mcg tablet 5 mcg PO DAILY 09/23/19 11/20/24 11/21/24 History omeprazole 40 mg capsule,delayed 40 mg PO DAILY 09/23/19 11/20/24 11/21/24 History release trazodone 50 mg tablet 50 mg PO DAILY 09/23/19 11/20/24 11/21/24 History Custom Molded Orthotics #1 ea 02/09/21 10/10/24 Unknown Rx tizanidine 4 mg tablet 4 mg PO Q12H PRN muscle spasticity 05/27/21 11/20/24 11/21/24 Rx 30 days #60 tabs pregabalin 150 mg capsule 150 mg PO TID 30 days #90 caps 06/18/21 11/20/24 11/21/24 Rx Supernator to the right #1 ea 09/07/21 10/10/24 Unknown Rx Custom Molded Orthotics #1 ea 04/26/22 10/10/24 Unknown Rx hydrocodone 10 mg-acetaminophen 1 tab PO QID pain 04/26/22 11/20/24 11/21/24 History 325 mg tablet sole supports #1 ea 07/19/22 10/10/24 Unknown Rx articulating AFO #1 ea 03/15/23 10/10/24 Unknown Rx sumatriptan succinate 50 mg tablet 50 mg PO DAILY 06/01/23 11/20/24 11/21/24 History albuterol sulfate 90 mcg/actuation 2 puff inhalation Q4H 08/24/24 11/20/24 1 Week Ago History aerosol inhaler ~11/13/24 aripiprazole 2 mg tablet 2 mg PO DAILY 08/24/24 11/20/24 11/21/24 History baclofen 20 mg tablet 20 mg PO TID 08/24/24 11/20/24 11/21/24 History fluoxetine 20 mg capsule 60 mg PO DAILY 08/24/24 11/20/24 11/21/24 History montelukast 10 mg tablet 10 mg PO DAILY 08/24/24 11/20/24 11/21/24 History ropinirole 0.5 mg tablet 1 mg PO QPM 08/24/24 11/20/24 11/21/24 History ondansetron 8 mg disintegrating 8 mg PO Q8H PRN nausea and 10/10/24 11/20/24 11/21/24 Rx tablet vomiting #3 tabs polyethylene glycol 3350 17 17 g PO DAILY 5 days #238 grams 10/10/24 11/20/24 11/21/24 Rx gram/dose oral powder (Miralax) Allergies Allergy/AdvReac Type Severity Reaction Status Date / Time Sulfa (Sulfonamide Allergy Unknown RASH Verified 10/10/24 09:59 Antibiotics) [facility] Anesthesia Medical History Back pain of lumbar region with sciatica Opioid contract exists Encounter for long-term use of opiate analgesic Surgical History (Updated 10/10/24 @ 10:00 by GETACHEW Youssef) H/O oral surgery H/O wrist surgery History of hysterectomy Family History Other CAD (coronary artery disease) Cancer Diabetes Hypertension Social History (Updated 10/10/24 @ 10:00 by GETACHEW Youssef) Smoking and tobacco/nicotine status: never used tobacco/nicotine Second hand smoke exposure: No Alcohol intake: current Alcohol intake frequency: holidays/special occasions only Substance/Drug Use: never Data Anesthesia Cardiac Studies: No Data to Display
[2024-11-22] MEDS: sodium chloride 0.9% 1,000 ML 15 ML IV (06:53)
[2024-11-22 08:12] VITALS: BP 106/65; PULSE 73; RESP 18; TEMP 36.1; O2SAT 94
[2024-11-22 08:32] VITALS: BP 120/65; PULSE 61; RESP 18; O2SAT 97
--- NOTE | 2024-11-22 08:51 | ANE.PACU2 ---
Inpatient post-anesthesia follow up: Airway intact: Yes Vital signs: Temperature 97 F Pulse Rate 61 Respiratory Rate 18 Blood Pressure 120/65 Pulse Oximetry 97 Oxygen Delivery Me thod Room Air Oxygen Flow Rate Fraction of Inspir ed Oxygen Hydration adequate: Yes Nausea and vomiting: No Pain level: 1 Mental status: Baseline
== END 2024-11-22 08:51 | disposition home or self-care (01) ==
PROVIDERS: PCP Family Medicine; Visit Provider Surgery
PROC: 0DJ08ZZ Inspection of Upper Intestinal Tract, Via Natural or Artificial Opening Endoscopic (ICD-10-PCS; principal; 2024-11-22 07:40)
PROC: 0DJD8ZZ Inspection of Lower Intestinal Tract, Via Natural or Artificial Opening Endoscopic (ICD-10-PCS; CPT 45378; 2024-11-22 07:40)
DX: Z12.11 Encounter for screening for malignant neoplasm of colon (principal); K57.30 Diverticulosis of large intestine without perforation or abscess without bleeding; K29.50 Unspecified chronic gastritis without bleeding; K64.8 Other hemorrhoids; Z79.891 Long term (current) use of opiate analgesic; G47.30 Sleep apnea, unspecified; K21.9 Gastro-esophageal reflux disease without esophagitis; E03.9 Hypothyroidism, unspecified; E66.01 Morbid (severe) obesity due to excess calories; Z68.41 Body mass index [BMI] 40.0-44.9, adult; Z88.2 Allergy status to sulfonamides; Z79.890 Hormone replacement therapy; Z79.899 Other long term (current) drug therapy
CPT/HCPCS: 43239; 45380; 88305; 88342; J2704; J7030

== ENCOUNTER 2025-02-26 08:10 | Outpatient (CLI) | payer OTHER, SELFPAY ==
--- NOTE | 2025-02-26 08:30 | MM_ITS ---
WS: [id number] BILATERAL 3D TOMOSYNTHESIS DIGITAL SCREENING MAMMOGRAPHY WITH CAD CLINICAL INFORMATION: screening HISTORY: Screening mammogram. No current complaints. COMPARISON: 2023 TECHNIQUE: Bilateral CC and MLO views. FINDINGS: Scattered fibroglandular densities bilaterally. No suspicious focal mass, asymmetry, calcifications, or architectural distortion. No evidence of malignancy. MM/MM scr BI tomosynthesis [id number] IMPRESSION: DENSITY: There are scattered areas of fibroglandular density. BI-RADS: 1 - Negative. FOLLOW UP: 1 Year Follow-up Recommend return to annual screening mammography.
== END 2025-02-26 08:11 | disposition home or self-care (01) ==
LOC: RAD 08:12
PROVIDERS: PCP Family Medicine; Visit Provider Family Medicine
DX: Z12.31 Encounter for screening mammogram for malignant neoplasm of breast (principal); R92.323 Mammographic fibroglandular density, bilateral breasts
CPT/HCPCS: 77063; 77067

== ENCOUNTER → 2025-03-04 17:34 | Outpatient (BNVA) | payer OTHER, SELFPAY | PROVIDERS: PCP Family Medicine; Visit Provider Family Medicine | DX: R30.0 Dysuria (principal) | CPT/HCPCS: 81000 ==

== ENCOUNTER 2025-08-07 11:26 | Outpatient (CLI) | payer OTHER, SELFPAY ==
--- NOTE | 2025-08-07 11:33 | MR_ITS ---
WS: [id number] MRI CERVICAL SPINE NONCONTRAST TECHNIQUE: Sagittal T1, T2 and STIR imaging. Axial T2, gradient, and fiesta imaging. CLINICAL INFORMATION: RADICULOPATHY CERVCIAL REGION FINDINGS: Straightening with slight reversal of the normal cervical lordosis. Slight anterolisthesis C4 on C5. Disc bulging worse at C5-6. This is progressed since 2017. Cord signal is normal. C2-C3: Mild facet arthropathy. Mild RIGHT bony foraminal narrowing. C3-C4: Mild facet arthropathy. Mild LEFT bony foraminal narrowing. Spinal canal is patent. C4-C5: Slight anterolisthesis C4 on C5. Mild disc bulging. Mild LEFT bony foraminal narrowing. Mild facet arthropathy. C5-C6: Disc osteophyte complex with slight contact of the cervical cord. Moderate bilateral bony foraminal narrowing. Moderate facet arthropathy with uncovertebral joint hypertrophy. Mild central canal stenosis. C6-C7: Disc osteophyte complex eccentric to the LEFT with mild to moderate LEFT foraminal narrowing. Mild RIGHT foraminal narrowing. Uncovertebral joint hypertrophy. Mild facet arthropathy. Shallow central disc osteophyte protrusion. C7-T1: Mild LEFT foraminal narrowing. Spinal canal and RIGHT foramen are patent. Visualized brain stem structures: Normal. Prevertebral soft tissues: Normal. Mucosal thickening in the mastoid tips bilaterally. MR/MR cervical spin wo con* [id number] IMPRESSION: 1. Straightening with slight reversal of the normal cervical lordosis. Slight anterolisthesis C4 on C5. Disc bulging worse at C5-6. This is progressed since 2017. 2. Mild central canal stenosis C5-6. 3. Moderate bilateral C5-C6 bony foraminal narrowing. 4. Mild to moderate LEFT C6-7 bony foraminal narrowing. 5. Mild LEFT C4-5 bony foraminal narrowing.
== END 2025-08-07 11:27 | disposition home or self-care (01) ==
LOC: RAD 11:28
PROVIDERS: PCP Family Medicine; Visit Provider Nurse Practitioner Family
DX: M54.12 Radiculopathy, cervical region (principal); M40.292 Other kyphosis, cervical region; R29.3 Abnormal posture; M43.12 Spondylolisthesis, cervical region; M50.222 Other cervical disc displacement at C5-C6 level; M50.323 Other cervical disc degeneration at C6-C7 level
CPT/HCPCS: 72141